=== PATIENT | female | born 1995 | race Caucasian/White ===

== ENCOUNTER 2025-03-19 16:17 | Inpatient (IN) | payer OTHER, SELFPAY ==
[2025-03-19] VITALS (15 sets, daily range): BP systolic 116–136; BP diastolic 73–98; PULSE 52–86; RESP 16–18; TEMP 36.4–36.6; O2SAT 95–100
--- NOTE | 2025-03-19 16:45 | RT.EKG_ITS ---
APPROVED REPORT Exam: Resting ECG Reason for Exam: R sided CP Patient Location: E HR:62 bpm ECG Measurements Heart Rate 62 AXIS DC 148 P 19 QRSd 83 QRS 20 QT 440 T 31 QTc 448 Conclusion Sinus rhythm, rate 62 No interval abnormalities No STEMI Q waves V1, V2 No priors available for comparison
--- NOTE | 2025-03-19 16:47 | W.ED.GENAD ---
Discharge Plan Disposition Patient Disposition: Admit to [facility] Condition: Stable Discharge Details Clinical Impression: Acute hepatic failure Primary Care Provider: Hector Guerra ED Provider: Nanveet Russell Home Meds and New Rx's Prescriptions: No Action pregabalin [Lyrica] 75 mg capsule 75 mg PO BID buspirone 10 mg tablet 10 mg PO BID lithium carbonate 300 mg tablet 300 mg PO BID quetiapine [Seroquel] 400 mg tablet 400 mg PO QHS HPI General Date/Time Provider Initiated Documentation: 03/19/25 16:26. HPI Narrative: 29 year-old biological female- uses they-them pronouns, transition to male, presents to ED today by POV/ambulating with a chief complaint of R sided abdominal pain with onset last night- becoming worse tonight. Quality described as generalized aching pain, no radiation to urinary frequency/pressure, vomiting, fever, shortness of breath, chest pain, endorses IBS & intermittent diarrhea, endorses nausea. Severity is described as moderate to severe. Palliating factors include nothing specific- patient sometimes takes #4 tabs of Tylenol for pain frequently. Provoking factors include deep breathing worsens pain. Events leading up to the incident/Associated Symptoms: Patient does take testosterone. Patient not anticoagulated. Related Data Home Medications ?Medication ?Instructions ?Recorded ?Confirmed buspirone 10 mg tablet 10 mg PO BID 03/19/25 03/19/25 lithium carbonate 300 mg tablet 300 mg PO BID 03/19/25 03/19/25 pregabalin 75 mg capsule (Lyrica) 75 mg PO BID 03/19/25 03/19/25 quetiapine 400 mg tablet (Seroquel) 400 mg PO QHS 03/19/25 03/19/25 Allergies Allergy/AdvReac Type Severity Reaction Status Date / Time lamotrigine (From Lamictal) Allergy Skin Rash Verified 03/19/25 16:25 Penicillins Allergy Skin Rash Verified 03/19/25 16:25 General Stated Complaint: Abd Prob YULISSA: 3 Review of Systems All systems reviewed & are unremarkable except as noted in HPI and below Exam Narrative Exam Narrative: GENERAL APPEARANCE: Well-nourished, non-toxic, awake and alert, atraumatic, no acute distress. SKIN: Warm, pale, dry, intact, without rashes/lesions/ulcerations. HEAD: Normocephalic, atraumatic, normal hair distribution for gender/age. EYES: Normal conjunctiva, no exudates on lids/lashes. ENT: Nares patent, no circumoral cyanosis, no facial swelling NECK: Supple, trachea midline, painless cervical ROM. LUNGS/CHEST: Lungs CTA bilaterally- no rhonchi/rales/wheezes diffusely, non-labored respirations, normal A/P diameter, symmetrical expansion, no chest wall deformity HEART (CV/PV): Regular rate and rhythm without murmur, no peripheral edema, no JVD. ABDOMEN: Soft, non-distended, no guarding, RUQ tenderness with + Musa's sign, no CVA tenderness to percussion bilaterally. MSK: Normal ROM, no swelling/deformity to bilateral UEs or LEs, moving all extremities without weakness, no cyanosis, spine midline without tenderness, normal curvature. NEURO: Mental Status AAOx4 - alert to person, place, time, events No facial droop, no forehead involvement. Motor: No focal weakness - strength 5/5 in bilateral UEs and LEs, proximal and distal, symmetric. Sensory: sensation intact to light touch globally. Gait normal: patient ambulated without ataxia into ED room. PSYCH: euthymic, cooperative, pleasant, appropriate speech Course Vital Signs Vital signs: Vital Signs Temperature 36.6 C 03/19/25 16:21 Pulse 61 03/19/25 16:21 Respiratory Rate 18 03/19/25 16:21 Blood Pressure 129/73 03/19/25 16:21 Pulse Oximetry 97 03/19/25 16:21 Temperature 36.6 C 03/19/25 16:39 Pulse 61 03/19/25 16:39 Respiratory Rate 18 03/19/25 16:39 Blood Pressure 129/73 03/19/25 16:39 Pulse Oximetry 97 03/19/25 16:39 Oxygen Delivery Method Room Air 03/19/25 16:39 Oxygen Flow Rate 0 03/19/25 16:39 Pain Level 10 03/19/25 16:39 Medical Decision Making This dictation utilizes [id number] dictation software and may contain unedited grammatical errors. 29 year-old biological female- uses they-them pronouns, transition to male, presents to ED today by POV/ambulating with a chief complaint of R sided abdominal pain with onset last night- becoming worse tonight. Quality described as generalized aching pain, no radiation to urinary frequency/pressure, vomiting, fever, shortness of breath, chest pain, endorses IBS & intermittent diarrhea, endorses nausea. Severity is described as moderate to severe. Palliating factors include nothing specific- patient sometimes takes #4 tabs of Tylenol for pain frequently. Provoking factors include deep breathing worsens pain. Events leading up to the incident/Associated Symptoms: Patient does take testosterone. Patients' medical history: Palpitations, mixed hyperlipidemia, borderline personality disorder, nonalcoholic fatty liver disease, fibromyalgia, IBS. Family and social history: Patient is currently housesitting in the area, denies any IV drug use, denies alcohol use. Pertinent exam findings / vital signs include right-sided abdominal tenderness with positive Musa sign, no CVA tenderness to percussion bilaterally, benign cardiopulmonary exam with mild tenderness in the lower right ribs without crepitus, nontoxic and afebrile. Differential / pathologies of concern include PE, ACS, biliary colic, renal colic, IBS or gastroenteritis, abdominal wall muscle strain. Diagnostic studies of: - CBC, CMP, PT/INR, D-dimer, lactate, troponin, lipase, UA, EKG. - EKG shows sinus rhythm at 62 bpm with P waves, narrow complex QRS, normal axis, somewhat flattened T waves but no acute T wave inversions, no ST elevations or reciprocal depressions - CBC shows no leukocytosis, no anemia, no left shift mildly low lymphocytes - PT/INR within normal limits - D-dimer is 1848 ordering PE study - Lactate 2.0 - CMP shows significant elevation of total bilirubin at 2.8, conjugated bilirubin is elevated at 1.3 (obstructive pattern), ALT elevated greater than AST 1732 greater than 1298-ordering Tylenol level and acute hepatitis panel - Troponin negative with reliable onset - Lipase within normal limits - UA shows no signs of abnormality - Tylenol level negative - CTA of the chest shows no PE, CT abdomen/pelvis shows trace pleural fluid but no other acute process Interventions of: -1 L IVF NS, 1 g IV Tylenol was ordered empirically on arrival will likely discontinue this until liver enzymes normalize - 4 mg IVP Zofran - Discussed with hospitalist Dr. Singh for admission at 2100 which was accepted, likely needs ultrasound right upper quadrant, trending of LFTs. ED Course/Assessment/Plan: 29-year-old male presents with right-sided abdominal pain onset last night worse today, he is housesitting in the area but usually goes to [facility], he notes that he said nonalcoholic fatty liver disease in the past, his LFTs are very elevated today of ALT 1732, AST 1298, Tylenol levels negative, is not acutely intoxicated, acute hepatitis panel sent out, patient likely needs ultrasound of the right upper quadrant tomorrow, he is admitted to the hospital with nonsurgical nonacute findings on CT and no other major signs of systemic infection. Disposition of Acute Hepatic Failure. Patient verbalized understanding of the plan and return to ED criteria and engaged in shared decision making. Medical Records Medical records reviewed: Yes I reviewed the patient's medical records. Imaging Data Radiologic Study: Attestation: I personally reviewed and interpreted this imaging study as follows: Imaging: CT Scan Radiologist's impression: Exam: CTA Chest With Contrast CTA Abdomen With Contrast Exam date and time: 03/19/2025 6:46 PM Age: 29 years old Clinical indication: Elevated d-dimer; Epigastric pain TECHNIQUE: Imaging protocol: Computed tomographic angiography of the chest with contrast. Exam focused on the arteries. Computed tomographic angiography of the abdomen with contrast. Exam focused on the arteries. 3D rendering (Not supervised by radiologist): MIP and/or 3D reconstructed images were created by the technologist. Radiation optimization: All CT scans at this facility use at least one of these dose optimization techniques: automated exposure control; mA and/or kV adjustment per patient size (includes targeted exams where dose is matched to clinical indication); or iterative reconstruction. Contrast material: OMNIPAQUE 350; Contrast volume: 75 ml; Contrast route: INTRAVENOUS (IV); COMPARISON: No relevant prior studies available. FINDINGS: VASCULATURE: Pulmonary arteries: No evidence of acute pulmonary embolism. Aorta: Normal caliber thoracic / abdominal aorta without dissection or aneurysm. Celiac and mesenteric arteries: No occlusion or significant stenosis. Renal arteries: No occlusion or significant stenosis. CHEST: Lungs: No acute alveolar or ground glass infiltrate. Pleural spaces: Trace bilateral pleural fluid. No pneumothorax. Heart: No right ventricular strain. No pericardial effusion. ABDOMEN AND PELVIS: Liver: Liver fatty infiltration. Gallbladder and biliary ducts: Unremarkable. No calcified stones. No ductal dilation. Pancreas: Unremarkable. No mass. No ductal dilation. Spleen: Unremarkable. No splenomegaly. Adrenal glands: Unremarkable. No mass. Kidneys: Unremarkable kidneys. No solid mass. No hydronephrosis. Stomach and bowel: Unremarkable. No obstruction. No mucosal thickening. Appendix: Normal appendix. Intraperitoneal space: No free air. No significant fluid collection. Reproductive: Prior hysterectomy. Lymph nodes: No enlarged lymph nodes. Bones/joints: Possible bone cyst present in the proximal right humerus. Soft tissues: Unremarkable. IMPRESSION: 1. No evidence of acute pulmonary embolism. 2. No acute pulmonary infiltrate. 3. Trace bilateral pleural fluid. 4. No acute intra-abdominal or pelvic process. Dictated and Authenticated by: Sharif Sandoval MD. Lab Data Lab results reviewed: Yes I reviewed the patient's lab results. Labs: Laboratory Tests Range/Units 03/19/25 03/19/25 03/19/25 17:22 17:34 19:02 WBC (4.4-10.8) 10^3/uL 4.28 L RBC (3.93-5.22) 10^6/uL 5.32 H Hgb (11.2-15.7) g/dL 15.4 Hct (36.0-46.0) % 44.9 MCV (80-95) fL 84 MCH (27.0-33.0) pg 28.9 MCHC (32.0-36.0) % 34.3 RDW (11.7-14.6) % 12.2 Plt Count (130-400) 10^3/uL 313 MPV (8.0-11.0) fL 10.5 Immature Gran % % 0.0 Neutrophils % % 71.3 Lymphocytes % % 22.2 Monocytes % % 5.1 Eosinophils % % 0.7 Basophils % % 0.7 Nucleated RBC % (0.0-0.3) % 0.0 Absolute Neutrophils (1.2-6.7) 10^3/uL 3.05 Absolute Lymphocytes (1.2-3.4) 10^3/uL 0.95 L Absolute Monocytes (0.1-0.8) 10^3/uL 0.22 Absolute Eosinophils (0.0-0.7) 10^3/uL 0.03 Absolute Basophils (0.0-0.2) 10^3/uL 0.03 PT (9.1-11.1) sec 10.4 INR (0.9-1.1) 1.0 D-Dimer (<500) ng/mlFEU 1848 H VBG Lactate (<or=2.0) mmol/L 2.0 Sodium (136-145) mmol/L 139 Potassium (3.5-5.1) mmol/L 4.2 Chloride (98-107) mmol/L 100 Carbon Dioxide (21.0-32.0) mmol/L 27.9 Anion Gap (3-11) mmol/L 11.1 H BUN (7-18) mg/dL 7 Creatinine (0.55-1.02) mg/dL 0.9 Est GFR (CKD-EPI 2020) (mL/min/1.73m2) 87.65 Glucose (74-106) mg/dL 150 H Calcium (8.5-10.1) mg/dL 9.5 Magnesium (1.8-2.4) mg/dL 1.9 Total Bilirubin (0.2-1.0) mg/dL 2.8 H Conjugated Bilirubin (0.0-0.2) mg/dL 1.3 H AST (15-37) U/L 1298 H ALT (14-59) U/L 1732 H Alkaline Phosphatase (46-116) U/L 162 H Troponin I (<or=51) ng/L < 4 Total Protein (6.4-8.2) g/dL 8.6 H Albumin (3.4-5.0) g/dL 4.3 Lipase (<78) U/L 38 Urine Color (Yellow) Urine Clarity (Clear) Urine pH (5-8) Ur Specific [place] (1.005-1.025) Urine Protein (Neg-Trace) mg/dL Urine Ketones (Negative) mg/dL Urine Blood (Negative) Urine Nitrite (Negative) Urine Bilirubin (Negative) Urine Urobilinogen (Up to 0.2) mg/dL Ur Leukocyte Esterase (Negative) Urine Glucose (Negative) mg/dL Acetaminophen (10-30) ug/mL Range/Units 03/19/25 03/19/25 19:38 20:35 WBC (4.4-10.8) 10^3/uL RBC (3.93-5.22) 10^6/uL Hgb (11.2-15.7) g/dL Hct (36.0-46.0) % MCV (80-95) fL MCH (27.0-33.0) pg MCHC (32.0-36.0) % RDW (11.7-14.6) % Plt Count (130-400) 10^3/uL MPV (8.0-11.0) fL Immature Gran % % Neutrophils % % Lymphocytes % % Monocytes % % Eosinophils % % Basophils % % Nucleated RBC % (0.0-0.3) % Absolute Neutrophils (1.2-6.7) 10^3/uL Absolute Lymphocytes (1.2-3.4) 10^3/uL Absolute Monocytes (0.1-0.8) 10^3/uL Absolute Eosinophils (0.0-0.7) 10^3/uL Absolute Basophils (0.0-0.2) 10^3/uL PT (9.1-11.1) sec INR (0.9-1.1) D-Dimer (<500) ng/mlFEU VBG Lactate (<or=2.0) mmol/L Sodium (136-145) mmol/L Potassium (3.5-5.1) mmol/L Chloride (98-107) mmol/L Carbon Dioxide (21.0-32.0) mmol/L Anion Gap (3-11) mmol/L BUN (7-18) mg/dL Creatinine (0.55-1.02) mg/dL Est GFR (CKD-EPI 2020) (mL/min/1.73m2) Glucose (74-106) mg/dL Calcium (8.5-10.1) mg/dL Magnesium (1.8-2.4) mg/dL Total Bilirubin (0.2-1.0) mg/dL Conjugated Bilirubin (0.0-0.2) mg/dL AST (15-37) U/L ALT (14-59) U/L Alkaline Phosphatase (46-116) U/L Troponin I (<or=51) ng/L Total Protein (6.4-8.2) g/dL Albumin (3.4-5.0) g/dL Lipase (<78) U/L Urine Color (Yellow) Yellow Urine Clarity (Clear) Clear Urine pH (5-8) 8.5 H Ur Specific [place] (1.005-1.025) 1.015 Urine Protein (Neg-Trace) mg/dL Negative Urine Ketones (Negative) mg/dL Negative Urine Blood (Negative) Negative Urine Nitrite (Negative) Negative Urine Bilirubin (Negative) Negative Urine Urobilinogen (Up to 0.2) mg/dL 0.2 Ur Leukocyte Esterase (Negative) Negative Urine Glucose (Negative) mg/dL Negative Acetaminophen (10-30) ug/mL 3 PFSH All Active Problems (Updated 03/19/25 @ 21:17 by SNEHA Galvin) Acute hepatic failure (Acute) Social History Smoking/Tobacco Use Status: Never Smoking risk assessment performed?: Yes Alcohol Intake: current Alcohol Intake frequency: a few times a month Drug use: Daily Substance use type: marijuana Housing: apartment Do you feel safe at home: Yes Do you feel safe in your relationship?: Yes
[2025-03-19 17:31] LABS: Abs Immature Grans 0.00 10^3/uL (0.0-0.06); HCT 44.9 % (36.0-46.0); HGB 15.4 g/dL (11.2-15.7); Immature Grans % 0.0 %; MCH 28.9 pg (27.0-33.0); MCHC 34.3 % (32.0-36.0); MCV 84 fL (80-95); MPV 10.5 fL (8.0-11.0); Platelet Count 313 10^3/uL (130-400); RBC 5.32 10^6/uL (3.93-5.22); RDW 12.2 % (11.7-14.6); RDW-SD 37.1 fL; WBC 4.28 10^3/uL (4.4-10.8)
[2025-03-19] MEDS: Ondansetron 4 MG/2 ML VIAL IVP (17:45)
[2025-03-19] MEDS: Normal Saline 1,000 ML 1000 ML IV (17:45)
[2025-03-19] MEDS: ACETAMINOPHEN 1,000 MG/100 ML BAG 400 MG IVPB (17:46)
[2025-03-19 18:01] LABS: Albumin 4.3 g/dL (3.4-5.0); Alkaline Phosphatase 162 U/L (46-116); Anion Gap 11.1 mmol/L (3-11); BUN 7 mg/dL (7-18); Bilirubin, Total 2.8 mg/dL (0.2-1.0); CO2 27.9 mmol/L (21.0-32.0); Calcium 9.5 mg/dL (8.5-10.1); Chloride 100 mmol/L (98-107); Estimated GFR 87.65 (mL/min/1.73m2); Glucose 150 mg/dL (74-106); Lipase 38 U/L (<78); Magnesium 1.9 mg/dL (1.8-2.4); Potassium 4.2 mmol/L (3.5-5.1); Sodium 139 mmol/L (136-145); Total Protein 8.6 g/dL (6.4-8.2)
[2025-03-19 18:03] LABS: AST 1298 U/L (15-37); Troponin I < 4 ng/L (<or=51)
[2025-03-19 18:04] LABS: D-Dimer 1848 ng/mlFEU (<500)
[2025-03-19 18:20] LABS: ALT 1732 U/L (14-59)
--- NOTE | 2025-03-19 18:30 | DI.CT_ITS ---
Exam(s) CT CHEST PE ABD PELVIS W EXAM: CT CHEST PE ABD PELVIS W CLINICAL HISTORY: chest pain; elev ddimer; epigastric pain. TECHNIQUE: Imaging Protocol: Axial CT angiography was performed with multi- slice acquisition and multi-planar and/or 3D reconstructions. Computer aided detection (CAD) was utilized. CONTRAST MATERIAL: Intravenous: Omnipaque 350contrast volume:75 mL COMPARISON: No exams were available for comparison FINDINGS: CHEST: Tracheobronchial tree: Patent where visualized. No evidence of bronchiectasis. Pulmonary parenchyma: No consolidation or dominant measurable mass. No architectural distortion. Pulmonary Arteries: No evidence of filling defect to suggest pulmonary emboli. Mediastinum and Jessie: No dominant adenopathy or fluid collection. The esophagus is unremarkable. Visualized thyroid gland: Unremarkable. Pleura: There are tiny bilateral pleural effusions. There is no pneumothorax. Heart: The heart is not dilated. No coronary artery calcifications are seen. No pericardial effusion. Aorta: Thoracic aorta non-dilated. No evidence of dissection. Bones: Within normal limits for the patient's age. Soft tissues: Unremarkable. ABDOMEN: Liver: There is diffuse decreased attenuation of the liver consistent with fatty infiltration. No measurable mass. Portal, Superior Mesenteric, and Splenic Veins: Unremarkable. Gallbladder and Biliary Tract: No radiodense calculus or dilation. Pancreas: Normal density, no abnormal calcifications or inflammatory process. Spleen: Normal. Adrenals: No masses seen. Kidneys: Normal size, contour and axis. No radiodense stones or obstructive uropathy. No masses seen. Abdominal Aorta: Abdominal portion non-dilated. Bowel: No obstruction or bowel wall thickening. Appendix is unremarkable. Peritoneal Cavity: No ascites, collection or mesenteric inflammatory response. No free air. Lymph Nodes: Within normal limits. Bones: Within normal limits for the patient's age. Soft Tissues: Unremarkable. PELVIS: Bladder: Symmetric distention, no gross wall thickening. Reproductive Organs: The uterus is absent. Lymph Nodes: Within normal limits. Bones: Within normal limits. IMPRESSION: 1. Fatty infiltration of the liver. 2. No acute abdominal or pelvic process. 3. There is no evidence of a pulmonary embolism, thoracic aortic dissection or aneurysm. 4. Tiny bilateral pleural effusions. 5. No focal consolidating infiltrates. 6. The preliminary [facility] report was reviewed. RADIATION DOSE DELIVERED: 566.59mGy.cm Total DLP DATA REPOSITORY: All CT scans at this facility are submitted to the National Radiology Data Registry (NRDR) Dose Index Registry (DIR) with the [employer] (A[employer]). RADIATION OPTIMIZATION: All CT scans at this facility use at least one of these dose optimization techniques: automated exposure control; mA and/or kV adjustment per patient size (includes targeted exams where dose is matched to clinical indication); or iterative reconstruction.
[2025-03-19] MEDS: Omnipaque 350 MG/ML 100 ML BTL IJ (18:54)
[2025-03-19] MEDS: Normal Saline Flush 10 ML SYR IVP (18:55)
[2025-03-19] MEDS: Normal Saline - Diluent 50 ML VIAL IJ (18:55)
[2025-03-19 19:26] LABS: INR 1.0 (0.9-1.1); Prothrombin Time 10.4 sec (9.1-11.1)
[2025-03-19 19:31] LABS: Bilirubin, Direct 1.3 mg/dL (0.0-0.2)
[2025-03-19 19:47] LABS: Glucose Negative (Negative)
--- NOTE | 2025-03-19 20:48 | DI.[facility]_ITS ---
PROCEDURE INFORMATION: Exam: CTA Chest With Contrast CTA Abdomen With Contrast Exam date and time: 03/19/2025 6:46 PM Age: 29 years old Clinical indication: Elevated d-dimer; Epigastric pain TECHNIQUE: Imaging protocol: Computed tomographic angiography of the chest with contrast. Exam focused on the arteries. Computed tomographic angiography of the abdomen with contrast. Exam focused on the arteries. 3D rendering (Not supervised by radiologist): MIP and/or 3D reconstructed images were created by the technologist. Radiation optimization: All CT scans at this facility use at least one of these dose optimization techniques: automated exposure control; mA and/or kV adjustment per patient size (includes targeted exams where dose is matched to clinical indication); or iterative reconstruction. Contrast material: OMNIPAQUE 350; Contrast volume: 75 ml; Contrast route: INTRAVENOUS (IV); COMPARISON: No relevant prior studies available. FINDINGS: VASCULATURE: Pulmonary arteries: No evidence of acute pulmonary embolism. Aorta: Normal caliber thoracic / abdominal aorta without dissection or aneurysm. Celiac and mesenteric arteries: No occlusion or significant stenosis. Renal arteries: No occlusion or significant stenosis. CHEST: Lungs: No acute alveolar or ground glass infiltrate. Pleural spaces: Trace bilateral pleural fluid. No pneumothorax. Heart: No right ventricular strain. No pericardial effusion. ABDOMEN AND PELVIS: Liver: Liver fatty infiltration. Gallbladder and biliary ducts: Unremarkable. No calcified stones. No ductal dilation. Pancreas: Unremarkable. No mass. No ductal dilation. Spleen: Unremarkable. No splenomegaly. Adrenal glands: Unremarkable. No mass. Kidneys: Unremarkable kidneys. No solid mass. No hydronephrosis. Stomach and bowel: Unremarkable. No obstruction. No mucosal thickening. Appendix: Normal appendix. Intraperitoneal space: No free air. No significant fluid collection. Reproductive: Prior hysterectomy. Lymph nodes: No enlarged lymph nodes. Bones/joints: Possible bone cyst present in the proximal right humerus. Soft tissues: Unremarkable. IMPRESSION: 1. No evidence of acute pulmonary embolism. 2. No acute pulmonary infiltrate. 3. Trace bilateral pleural fluid. 4. No acute intra-abdominal or pelvic process. Dictated and Authenticated by: Sharif Sandoval MD. Orderin Drew Toth MD
[2025-03-19 21:08] LABS: Acetaminophen 3 ug/mL (10-30)
--- NOTE | 2025-03-19 21:55 | HPE_ITS ---
Date of service: 03/19/25 Time of Service: 21:55 Assessment and Plan Assessment and plan (1) Acute hepatic failure: Status: Acute Assessment and plan: Exact etiology is unknown. Will recheck labs in the AM. Hepatitis panel has been sent to the ED. Will order MR CP as well as ultrasound to see if we can delineate pathology. Patient is currently having very little and no pain. (2) Elevated d-dimer: Status: Acute Assessment and plan: Once again exact etiology is unknown but her CT angiogram did not indicate a pulmonary emboli I will do a lower extremity ultrasound for completeness. (3) Hyperbilirubinemia: Status: Acute Assessment and plan: Patient has elevated total as well as direct bilirubin. Concern for obstructive picture so therefore we will follow-up images as mentioned above will be performed. History of Present Illness History of Present Illness Chief Complaint: right flank pain Narrative: This is a 29-year-old male who presents to the ED with a 1 day history of right flank pain radiating towards his belly. Patient denies significant anorexia but does have a history of IBS and states that he is having multiple liquid stools of late. Patient also states he has a history of fibromyalgia. Patient states that he has not had any changes in his medications since October. Patient states that in his visit to the physicians in the past he has been diagnosed with transaminitis but very mild. Patient denies any new foods denies any intravenous drug use denies any significant alcohol use states that he has never been diagnosed with HIV or hepatitis in the past. Patient denies any change in his stool color. Workup in the ED including radiographs as well as laboratory data are as follows: He does have an elevated AST at 1298 as well as an elevated ALT at 1732. He also has an elevated total bilirubin at 2.[address] was essentially benign. He did get a CT angiogram as he had an elevated D- dimer at 1848. Patient's Tylenol level was nondetectable. Patient does endorse allergies to Lamictal as well as penicillin. Patient is a full code. Patient denies any calf pain recent travel MPRESSION: 1. No evidence of acute pulmonary embolism. 2. No acute pulmonary infiltrate. 3. Trace bilateral pleural fluid. 4. No acute intra-abdominal or pelvic process. Review of Systems All systems reviewed & are unremarkable except as noted in HPI and below PFSH All Active Problems (Updated 10/20/25 @ 22:01 by Stephen Singh MD) Hyperbilirubinemia (Acute) Elevated d-dimer (Acute) Acute hepatic failure (Acute) Social History Smoking/Tobacco Use Status: Never Smoking risk assessment performed?: Yes Alcohol Intake: current Alcohol Intake frequency: a few times a month Drug use: Daily Substance use type: marijuana Housing: apartment Do you feel safe at home: Yes Do you feel safe in your relationship?: Yes Meds Allergies and Home Medications Allergies Allergy/AdvReac Type Severity Reaction Status Date / Time lamotrigine (From Lamictal) Allergy Skin Rash Verified 03/19/25 16:25 Penicillins Allergy Skin Rash Verified 03/19/25 16:25 Home Medications ?Medication ?Instructions ?Recorded ?Confirmed ?Type buspirone 10 mg tablet 10 mg PO BID 03/19/25 History lithium carbonate 300 mg tablet 300 mg PO BID 03/19/25 03/19/25 History pregabalin 75 mg capsule (Lyrica) 75 mg PO BID 5 03/19/25 History quetiapine 400 mg tablet (Seroquel) 400 mg PO QHS 03/0103/19/25 History Exam Narrative Exam Narrative: HEENT-normocephalic atraumatic mucous memories moist oropharynx is clear Neck-no lymphadenopathy no JVD no thyromegaly Cardiovascular-regular rate and rhythm no murmur rubs gallops she is lungs-clear to auscultation bilaterally with good air exchange Abdomen- mild tenderness to palpation in the right upper quadrant. Bowel sounds active x 4 Extremities-no sinus clubbing or edema bilaterally Neurologic-cranial nerves II through XII intact as tested normal Psych he is alert and orient x 3 no apparent distress Results Labs 03/19/25 17:22 03/19/25 17:22 Labs: Laboratory Results - last 24 hr 03/19/25 03/19/25 03/19/25 17:22 17:34 19:02 WBC 4.28 L RBC 5.32 H Hgb 15.4 Hct 44.9 MCV 84 MCH 28.9 MCHC 34.3 RDW 12.2 Plt Count 313 MPV 10.5 Immature Gran % 0.0 Neutrophils % 71.3 Lymphocytes % 22.2 Monocytes % 5.1 Eosinophils % 0.7 Basophils % 0.7 Nucleated RBC % 0.0 Absolute Neutrophils 3.05 Absolute Lymphocytes 0.95 L Absolute Monocytes 0.22 Absolute Eosinophils 0.03 Absolute Basophils 0.03 PT 10.4 INR 1.0 D-Dimer 1848 H VBG Lactate 2.0 Sodium 139 Potassium 4.2 Chloride 100 Carbon Dioxide 27.9 Anion Gap 11.1 H BUN 7 Creatinine 0.9 Est GFR (CKD-EPI 2020) 87.65 Glucose 150 H Calcium 9.5 Magnesium 1.9 Total Bilirubin 2.8 H Conjugated Bilirubin 1.3 H AST 1298 H ALT 1732 H Alkaline Phosphatase 162 H Troponin I < 4 Total Protein 8.6 H Albumin 4.3 Lipase 38 Urine Color Urine Clarity Urine pH Ur Specific [place] Urine Protein Urine Ketones Urine Blood Urine Nitrite Urine Bilirubin Urine Urobilinogen Ur Leukocyte Esterase Urine Glucose Acetaminophen 03/19/25 03/19/25 19:38 20:35 WBC RBC Hgb Hct MCV MCH MCHC RDW Plt Count MPV Immature Gran % Neutrophils % Lymphocytes % Monocytes % Eosinophils % Basophils % Nucleated RBC % Absolute Neutrophils Absolute Lymphocytes Absolute Monocytes Absolute Eosinophils Absolute Basophils PT INR D-Dimer VBG Lactate Sodium Potassium Chloride Carbon Dioxide Anion Gap BUN Creatinine Est GFR (CKD-EPI 2020) Glucose Calcium Magnesium Total Bilirubin Conjugated Bilirubin AST ALT Alkaline Phosphatase Troponin I Total Protein Albumin Lipase Urine Color Yellow Urine Clarity Clear Urine pH 8.5 H Ur Specific [place] 1.015 Urine Protein Negative Urine Ketones Negative Urine Blood Negative Urine Nitrite Negative Urine Bilirubin Negative Urine Urobilinogen 0.2 Ur Leukocyte Esterase Negative Urine Glucose Negative Acetaminophen 3 Last Vital Signs Temp 36.6 C 03/19/25 16:39 Pulse 64 03/19/25 17:38 Resp 18 03/19/25 17:38 BP 136/98 H 03/19/25 17:38 Pulse Ox 98 03/19/25 17:38 Time Spent Time spent with Patient: 40-54 minutes Time was spent: preparing to see the patient(eg.review tests), obtaining and/or reviewing separately otained hiistory, ordering medications,tests, procedures, referring, communicating with other health career development counselor, indepentently interpreting results, counseling the patient and care coordination
--- NOTE | 2025-03-19 22:54 | W.PC.ACHO ---
Registration Status: ADM IN Primary Language: Preferred Language: ED Information & Data Chief Complaint Abd Prob 03/19/25 16:48 Triage Note pt with c/o right side pain 03/19/25 16:21 along rib cage pt states pain onset last night becoming worse today Most Recent Vital Signs Temperature 36.4 C L 03/19/25 22:21 Temperature Source Temporal Artery Scan 03/19/25 22:21 Pulse 80 03/19/25 22:21 Pulse Rhythm Regular 03/19/25 22:21 Respiratory Rate 18 03/19/25 22:21 Respiratory Effort Normal 03/19/25 22:21 Respiratory Depth Normal 03/19/25 22:21 Respiratory Pattern Normal 03/19/25 22:21 Blood Pressure 127/94 H 03/19/25 22:21 Blood Pressure Mean 105 03/19/25 22:21 Pulse Oximetry 95 03/19/25 22:21 Oxygen Delivery Method Room Air 03/19/25 22:21 Oxygen Flow Rate 0 03/19/25 22:21 Pain Level 5 03/19/25 22:21 Allergies lamotrigine (From Lamictal) Allergy (Verified 03/19/25 16:25) Skin Rash Penicillins Allergy (Verified 03/19/25 16:25) Skin Rash Active Medications Generic Name Dose Route Start Last Admin Trade Name Freq PRN Reason Stop Dose Admin Iohexol 100 ml 03/19/25 18:45 03/19/25 18:54 Omnipaque 350 Mg/Ml 100 Ml Btl IJ 04/18/25 23:59 75 ml DIRECTED SELVIN Administration Sodium Chloride 50 ml 03/19/25 18:45 03/19/25 18:55 Normal Saline - Diluent 50 Ml Vial IJ 50 ml DIRECTED SELVIN Administration Sodium Chloride 0 ml 03/19/25 18:45 03/19/25 18:55 Normal Saline Flush 10 Ml Syr IVP 10 ml PRN PRN Administration IV IV Catheter Type [Left Saline Lock Antecubital] IV Catheter Gauge [Left 18 Antecubital] Diet Orders Category Date Time Status Regular/Normal [DIET] Nutrition 03/20/25 Breakfast Ordered Diagnostics 03/19/25 03/19/25 03/19/25 Range/Units 20:35 19:38 19:02 WBC (4.4-10.8) 10^3/uL RBC (3.93-5.22) 10^6/uL Hgb (11.2-15.7) g/dL Hct (36.0-46.0) % MCV (80-95) fL MCH (27.0-33.0) pg MCHC (32.0-36.0) % RDW (11.7-14.6) % Plt Count (130-400) 10^3/uL MPV (8.0-11.0) fL Immature Gran % % Neutrophils % % Lymphocytes % % Monocytes % % Eosinophils % % Basophils % % Nucleated RBC % (0.0-0.3) % Absolute Neutrophils (1.2-6.7) 10^3/uL Absolute Lymphocytes (1.2-3.4) 10^3/uL Absolute Monocytes (0.1-0.8) 10^3/uL Absolute Eosinophils (0.0-0.7) 10^3/uL Absolute Basophils (0.0-0.2) 10^3/uL PT 10.4 (9.1-11.1) sec INR 1.0 (0.9-1.1) D-Dimer (<500) ng/mlFEU VBG Lactate (<or=2.0) mmol/L Sodium (136-145) mmol/L Potassium (3.5-5.1) mmol/L Chloride (98-107) mmol/L Carbon Dioxide (21.0-32.0) mmol/L Anion Gap (3-11) mmol/L BUN (7-18) mg/dL Creatinine (0.55-1.02) mg/dL Est GFR (CKD-EPI 2020) (mL/min/1.73m2) Glucose (74-106) mg/dL Calcium (8.5-10.1) mg/dL Magnesium (1.8-2.4) mg/dL Total Bilirubin (0.2-1.0) mg/dL Conjugated Bilirubin 1.3 H (0.0-0.2) mg/dL AST (15-37) U/L ALT (14-59) U/L Alkaline Phosphatase (46-116) U/L Troponin I (<or=51) ng/L Total Protein (6.4-8.2) g/dL Albumin (3.4-5.0) g/dL Lipase (<78) U/L Urine Color Yellow (Yellow) Urine Clarity Clear (Clear) Urine pH 8.5 H (5-8) Ur Specific [place] 1.015 (1.005-1.025) Urine Protein Negative (Neg-Trace) mg/dL Urine Ketones Negative (Negative) mg/dL Urine Blood Negative (Negative) Urine Nitrite Negative (Negative) Urine Bilirubin Negative (Negative) Urine Urobilinogen 0.2 (Up to 0.2) mg/dL Ur Leukocyte Esterase Negative (Negative) Urine Glucose Negative (Negative) mg/dL Acetaminophen 3 (10-30) ug/mL Hepatitis A IgM Ab Pending Hep Bs Antigen Pending Hep B Core Total Ab Pending Hepatitis C Antibody Pending 03/19/25 03/19/25 Range/Units 17:34 17:22 WBC 4.28 L (4.4-10.8) 10^3/uL RBC 5.32 H (3.93-5.22) 10^6/uL Hgb 15.4 (11.2-15.7) g/dL Hct 44.9 (36.0-46.0) % MCV 84 (80-95) fL MCH 28.9 (27.0-33.0) pg MCHC 34.3 (32.0-36.0) % RDW 12.2 (11.7-14.6) % Plt Count 313 (130-400) 10^3/uL MPV 10.5 (8.0-11.0) fL Immature Gran % 0.0 % Neutrophils % 71.3 % Lymphocytes % 22.2 % Monocytes % 5.1 % Eosinophils % 0.7 % Basophils % 0.7 % Nucleated RBC % 0.0 (0.0-0.3) % Absolute Neutrophils 3.05 (1.2-6.7) 10^3/uL Absolute Lymphocytes 0.95 L (1.2-3.4) 10^3/uL Absolute Monocytes 0.22 (0.1-0.8) 10^3/uL Absolute Eosinophils 0.03 (0.0-0.7) 10^3/uL Absolute Basophils 0.03 (0.0-0.2) 10^3/uL PT (9.1-11.1) sec INR (0.9-1.1) D-Dimer 1848 H (<500) ng/mlFEU VBG Lactate 2.0 (<or=2.0) mmol/L Sodium 139 (136-145) mmol/L Potassium 4.2 (3.5-5.1) mmol/L Chloride 100 (98-107) mmol/L Carbon Dioxide 27.9 (21.0-32.0) mmol/L Anion Gap 11.1 H (3-11) mmol/L BUN 7 (7-18) mg/dL Creatinine 0.9 (0.55-1.02) mg/dL Est GFR (CKD-EPI 2020) 87.65 (mL/min/1.73m2) Glucose 150 H (74-106) mg/dL Calcium 9.5 (8.5-10.1) mg/dL Magnesium 1.9 (1.8-2.4) mg/dL Total Bilirubin 2.8 H (0.2-1.0) mg/dL Conjugated Bilirubin (0.0-0.2) mg/dL AST 1298 H (15-37) U/L ALT 1732 H (14-59) U/L Alkaline Phosphatase 162 H (46-116) U/L Troponin I < 4 (<or=51) ng/L Total Protein 8.6 H (6.4-8.2) g/dL Albumin 4.3 (3.4-5.0) g/dL Lipase 38 (<78) U/L Urine Color (Yellow) Urine Clarity (Clear) Urine pH (5-8) Ur Specific [place] (1.005-1.025) Urine Protein (Neg-Trace) mg/dL Urine Ketones (Negative) mg/dL Urine Blood (Negative) Urine Nitrite (Negative) Urine Bilirubin (Negative) Urine Urobilinogen (Up to 0.2) mg/dL Ur Leukocyte Esterase (Negative) Urine Glucose (Negative) mg/dL Acetaminophen (10-30) ug/mL Hepatitis A IgM Ab Hep Bs Antigen Hep B Core Total Ab Hepatitis C Antibody [id number] Documentation POC Urine Test Start: 03/19/25 18:51 Freq: .Urine Test Status: Complete Protocol: Activity Type Activity Date Activity User E-sign Co-sign Detail Recorded Client Recorded Date Recorded By Document 03/19/25 19:45 ER [id number] 03/19/25 20:07 ER Intake and Output - 24 Hour Total 03/19/25 16:17 thru 03/19/25 22:21 Intake Total 1100 Balance 1100 Weight 84 kg Intake: IV 1100 Other: # Voids 3 Falls Risk Assessment History of Falls No History 03/19/25 16:41 Contributing Factors No Factors 03/19/25 16:41 Ambulatory Aids Independent 03/19/25 16:41 Tubes/Lines None 03/19/25 16:41 Gait Evaluation No gait disturbance 03/19/25 16:41 Cognition No cognitive impairment 03/19/25 16:41 Fall Total Score 0 03/19/25 16:41 Level of Risk Standard/Low Risk 03/19/25 16:41 Problems Hyperbilirubinemia (Acute) Elevated d-dimer (Acute) Acute hepatic failure (Acute) v v v v v v v v v Sending and/or Receiving Nurses: Please use comment section below to note any information pertinent to the patient hand-off not included above. Information / Comments: no further Report received from:Elizabeth
[2025-03-19] MEDS: QUEtiapine 50 MG TAB 400 MG PO (23:02)
[2025-03-19] MEDS: Normal Saline 1,000 ML 125 ML IV (23:03)
--- NOTE | 2025-03-20 | DI.US_ITS ---
Exam(s) US EXTREMITY VENOUS BI EXAM: US EXTREMITY VENOUS BI CLINICAL HISTORY: elevated dimer. TECHNIQUE: Bilateral lower extremity venous ultrasound performed using grayscale, color-flow, and spectral Doppler analysis. COMPARISON: No exams were available for comparison FINDINGS: The right common femoral, femoral and popliteal veins demonstrate normal compressibility, augmentation, and color Doppler. The posterior tibial veins are patent. The saphenofemoral junction is unremarkable. There is no evidence of a Frank's cyst. The soft tissues are unremarkable. The left common femoral, femoral and popliteal veins demonstrate normal compressibility, augmentation, and color Doppler. The posterior tibial veins are patent. The saphenofemoral junction is unremarkable. There is no evidence of a Frank's cyst. The soft tissues are unremarkable. IMPRESSION: 1. No evidence of a right lower extremity DVT. 2. No evidence of a left lower extremity DVT. DATA REPOSITORY:
--- NOTE | 2025-03-20 | DI.US_ITS ---
Exam(s) US ABDOMEN EXAM: US ABDOMEN CLINICAL HISTORY: transaminitis TECHNIQUE: Ultrasound abdomen performed using standard protocol. COMPARISON: CT CT CHEST PE ABD PELVIS W from 03/19/2025 FINDINGS: ABDOMINAL AORTA AND IVC: Visualized portions normal caliber. PANCREAS: Normal where visualized. LIVER: There is diffuse increased echogenicity of the liver consistent with fatty infiltration. There is focal fatty sparing adjacent to the gallbladder fossa. Hepatopetal flow in the Portal Vein. No evidence of a hepatic mass. The liver measures 17.1cm long. GALLBLADDER:No evidence of cholelithiasis. No evidence of wall thickening. No pericholecystic fluid identified. BILIARY SYSTEM: Common bile duct measures < 7 mm. No intrahepatic biliary ductal dilation. WILLIAM'S SIGN: Negative. KIDNEYS: Kidneys are symmetric in size. No evidence of renal calculi. No evidence of hydronephrosis. No renal mass or cyst identified. SPLEEN: Not enlarged. ASCITES: None seen. IMPRESSION: Hepatic steatosis. DATA REPOSITORY:
--- NOTE | 2025-03-20 | DI.MRI_ITS ---
Exam(s) MR ABDOMEN WO EXAM: MR ABDOMEN WO CLINICAL HISTORY: transaminitis TECHNIQUE: Multiplanar multisequence MRI of the Abdomen was performed. COMPARISON: CT CT CHEST PE ABD PELVIS W from 03/19/2025 US US ABDOMEN from 03/20/2025 FINDINGS: Lung bases: There are very small bilateral pleural effusions. Liver: There is diffuse fatty infiltration of the liver. This is best appreciated on the in/opposed phase images. There is no evidence of a hepatic mass. Pancreas: Unremarkable. Gallbladder and Bile Ducts: Gallbladder is contracted. There is no evidence of cholelithiasis or biliary ductal dilatation. Adrenals: Unremarkable. Kidneys: No suspicious renal mass is seen. There is no hydronephrosis. Spleen: Unremarkable. Bowel: There is no evidence of bowel obstruction or bowel wall thickening. Aorta: There is no evidence of an abdominal aortic aneurysm. Soft Tissues: Unremarkable. Bone: Unremarkable. Lymph Nodes: Unremarkable. IMPRESSION: 1. Fatty infiltration of the liver. 2. Very small bilateral pleural effusions. 3. No evidence of cholelithiasis or biliary ductal dilatation. DATA REPOSITORY:
[2025-03-20 06:30] LABS: Abs Immature Grans 0.00 10^3/uL (0.0-0.06); HCT 42.4 % (36.0-46.0); HGB 14.6 g/dL (11.2-15.7); Immature Grans % 0.0 %; MCH 30.1 pg (27.0-33.0); MCHC 34.4 % (32.0-36.0); MCV 87 fL (80-95); MPV 10.7 fL (8.0-11.0); Platelet Count 298 10^3/uL (130-400); RBC 4.85 10^6/uL (3.93-5.22); RDW 12.2 % (11.7-14.6); RDW-SD 38.9 fL; WBC 4.98 10^3/uL (4.4-10.8)
[2025-03-20 06:50] LABS: ALT 987 U/L (14-59); AST 628 U/L (15-37); Albumin 3.4 g/dL (3.4-5.0); Alkaline Phosphatase 145 U/L (46-116); Anion Gap 6.9 mmol/L (3-11); BUN 7 mg/dL (7-18); Bilirubin, Total 2.6 mg/dL (0.2-1.0); CO2 26.1 mmol/L (21.0-32.0); Calcium 8.6 mg/dL (8.5-10.1); Chloride 107 mmol/L (98-107); Estimated GFR 100.96 (mL/min/1.73m2); Glucose 121 mg/dL (74-106); Potassium 3.8 mmol/L (3.5-5.1); Sodium 140 mmol/L (136-145); Total Protein 6.8 g/dL (6.4-8.2)
[2025-03-20] MEDS: Ondansetron 4 MG/2 ML VIAL IVP ×2 (07:33→13:21)
[2025-03-20] MEDS: HYDROmorphone 2 MG/ML SYR 1 MG IVP ×2 (07:33→18:43)
[2025-03-20] MEDS: Normal Saline 1,000 ML 125 ML IV ×2 (07:34→16:38)
[2025-03-20] MEDS: Normal Saline Flush 10 ML SYR IVP (07:34)
[2025-03-20 07:36] VITALS: BP 142/93; PULSE 61; RESP 17; TEMP 36.5; O2SAT 96
[2025-03-20] MEDS: busPIRone 5 MG TAB 10 MG PO ×2 (08:08→19:39)
[2025-03-20] MEDS: Lithium Carbonate 300 MG CAP PO (08:09)
[2025-03-20] MEDS: Pregabalin 25 MG CAP 75 MG PO ×2 (08:09→19:41)
--- NOTE | 2025-03-20 09:01 | PGE_ITS ---
Date of Service Date of service: 03/20/25 Time of Service: 09:01 Assessment and Plan Assessment and plan (1) Acute hepatic failure: Start date: 03/20/25 Start time: 11:00 Status: Acute Assessment and plan: Previous history with similar presentation and admitted at [facility] [place] this summer - attempting to get records- only mentioned findings of low level of testosterone w/o additional supplementation as per patient's report Exact etiology is unknown Liver enzymes and bilirubin -trending down near 50% ongoing IVF and PRN zofran for emesis Hepatitis panel pending NPO pending imaging this AM then resume diet MR CP pending Ultrasound pending Ongoing pain management with PRN hydromorphone- with Hx of IBS - will give bowel management medicines INR 1.0 on admission, Salicylate and GGT, ethyl, CPK, UDS pending CMP in AM (2) Elevated d-dimer: Start date: 03/20/25 Start time: 10:59 Status: Acute Assessment and plan: Trending down CMP in AM CT angiogram neagtive for PE Lower extremity ultrasound pending (3) Hyperbilirubinemia: Start date: 03/20/25 Start time: 10:59 Status: Acute Assessment and plan: trending down Imaging pending Labs in AM (4) Bipolar 1 disorder: Status: Acute Assessment and plan: On home dose lithium (5) Depression: Status: Chronic Assessment and plan: On home dose Buspar (6) Fibromyalgia: Status: Acute Assessment and plan: On home dose pregabalin (7) Insomnia: Status: Acute Assessment and plan: Was on home dose seroquel 400 mg PO Q HS Child -Jacobs score class A (8) Hormone replacement therapy (HRT): Start date: 03/20/25 Start time: 11:19 Status: Acute Assessment and plan: On Testoterone weekly dose du on Wednesday (9) GERD (gastroesophageal reflux disease): Status: Chronic Assessment and plan: Reports a history of GERD on omeprazole at home , now with heartburn and vomiting w/o hematemesis Protonix IV daily (10) On deep vein thrombosis (DVT) prophylaxis: Status: Acute Assessment and plan: On LMWH Discussed with Dr. Dailey Subjective Subjective Patient reports: no new complaints, still having pain, tolerating liquids well (NPO for Dx testing ), tolerating a regular diet (NPO for Dx testing ), voiding w/o difficulty, flatus, no bowel movement, diarrhea, nausea, vomiting and other (IBS -liquid stool X1 03/19); denies blood in stool, shortness of breath or fever Exam Narrative Exam Narrative: Rj Hurst is a 29 yo patient with Pronouns they them and a PMX of total hysterectomy, double mastectomy, testosterone replacement therapy weekly due on Wednesday, fibromyalgia on THC- head is normocephalic , non-icteric non-injected sclera , neurologically intact, alert and oriented X 4, unlabored breathing clear lungs, S1, S2 regular, no murmur, abdomen is round, non-distended, soft with generalized diffused tenderness > to RUQ, no guarging , negative ramirez's, CVA tenderness neagtive, no edema to extremities, RAAS 0, congrunet mmodf and affect Objective Last Vital Signs Temp 36.5 C 03/20/25 07:36 Pulse 61 03/20/25 07:36 Resp 17 03/20/25 07:36 BP 142/93 H 03/20/25 07:36 Pulse Ox 96 03/20/25 07:36 Laboratory Results - last 24 hr 03/19/25 03/19/25 03/19/25 17:22 17:34 19:02 WBC 4.28 L RBC 5.32 H Hgb 15.4 Hct 44.9 MCV 84 MCH 28.9 MCHC 34.3 RDW 12.2 Plt Count 313 MPV 10.5 Immature Gran % 0.0 Neutrophils % 71.3 Lymphocytes % 22.2 Monocytes % 5.1 Eosinophils % 0.7 Basophils % 0.7 Nucleated RBC % 0.0 Absolute Neutrophils 3.05 Absolute Lymphocytes 0.95 L Absolute Monocytes 0.22 Absolute Eosinophils 0.03 Absolute Basophils 0.03 PT 10.4 INR 1.0 D-Dimer 1848 H VBG Lactate 2.0 Sodium 139 Potassium 4.2 Chloride 100 Carbon Dioxide 27.9 Anion Gap 11.1 H BUN 7 Creatinine 0.9 Est GFR (CKD-EPI 2020) 87.65 Glucose 150 H Calcium 9.5 Magnesium 1.9 Total Bilirubin 2.8 H Conjugated Bilirubin 1.3 H AST 1298 H ALT 1732 H Alkaline Phosphatase 162 H Troponin I < 4 Total Protein 8.6 H Albumin 4.3 Lipase 38 Urine Color Urine Clarity Urine pH Ur Specific [place] Urine Protein Urine Ketones Urine Blood Urine Nitrite Urine Bilirubin Urine Urobilinogen Ur Leukocyte Esterase Urine Glucose Acetaminophen 03/19/25 03/19/25 03/20/25 19:38 20:35 05:50 WBC 4.98 RBC 4.85 Hgb 14.6 Hct 42.4 MCV 87 MCH 30.1 MCHC 34.4 RDW 12.2 Plt Count 298 MPV 10.7 Immature Gran % 0.0 Neutrophils % 57.3 Lymphocytes % 31.9 Monocytes % 7.8 Eosinophils % 2.4 Basophils % 0.6 Nucleated RBC % 0.0 Absolute Neutrophils 2.85 Absolute Lymphocytes 1.59 Absolute Monocytes 0.39 Absolute Eosinophils 0.12 Absolute Basophils 0.03 PT INR D-Dimer VBG Lactate Sodium 140 Potassium 3.8 Chloride 107 Carbon Dioxide 26.1 Anion Gap 6.9 BUN 7 Creatinine 0.8 Est GFR (CKD-EPI 2020) 100.96 Glucose 121 H Calcium 8.6 Magnesium Total Bilirubin 2.6 H Conjugated Bilirubin AST 628 H ALT 987 H Alkaline Phosphatase 145 H Troponin I Total Protein 6.8 Albumin 3.4 Lipase Urine Color Yellow Urine Clarity Clear Urine pH 8.5 H Ur Specific [place] 1.015 Urine Protein Negative Urine Ketones Negative Urine Blood Negative Urine Nitrite Negative Urine Bilirubin Negative Urine Urobilinogen 0.2 Ur Leukocyte Esterase Negative Urine Glucose Negative Acetaminophen 3 Time Spent with Patient Time Spent with Patient: >50 minutes Time was spent: preparing to see the patient(eg.review tests), obtaining and/or reviewing separately otained hiistory, ordering medications,tests, procedures, referring, communicating with other health career coordinator, indepentently interpreting results, counseling the patient, care coordination and other
--- NOTE | 2025-03-20 10:04 | PDOC.CMIN ---
Date of service: 03/20/25 Time of Service: 10:04 Care Management Initial Assmt Initial Assessment Reason for Hospitalization: Hepatic failure Functional Status/Living Situation Patient Presentation: Rj was sitting up in bed when CM met with them. They were very pleasant in interaction and easily engaged with CM. Rj was admitted with abdominal pain and nausea and vomiting. Their Bilirubim and LFTs were markedly elevated and testing for viral hepatitis is underway. Rj shared that they have been told they have transaminitis in the past and that it may be due to some of their medications. 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 They are independnet in the community and don't receive any community services. 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) Instrumental Activities of Daily Living (ADLs): Independent Medications Medication Management: No Issues/Barriers identified Advance Directives Advance Directives: Do you have an Advance Directive: N 03/20/25, 03:49 AD On File at [facility]: N 03/19/25, 17:18 Date Asked 03/19/25 03/19/25, 17:18 AD Date Reviewed COLST On File at [facility] COLST Date Scanned Code Status Resuscitation Status Full Code Portal Pt does not currently have a portal and education provided: Yes Insurance Coverage/Financial Issues Insurance: [facility] Care Team Visit Care Team Role Provider Type Carole Cobian APRN MD [facility] STAFF PHYSICIAN Hector Guerra MD Primary Care Provider NON-[facility] STAFF PHYSICIAN SNEHA Galvin Emergency Provider [employer] Stephen Singh MD Admit Provider [facility] STAFF PHYSICIAN Attending Provider Discharge Potential Discharge Needs: PCP F/U Appt Anticipated Barriers to Discharge: None Identified Patient/Family Education Needs: Review discharge instructions, discuss Ask Me Three Transportation: Private vehicle Plan: Anticipate Rj will be discharged home with no new services when medically stable. They will follow up with their PCP and plan of care and transport with a friend. CM will follow and continue to assess for sdischarge needs. Social Determinants of Health Screening Social Determinants of health last assessed in clinic: 03/19/25 Will the Patient Participate in the Screening?: Declined to provide Do you worry about having a steady place to live?: no Problems where you live: no known problems In the past 12 months, have you had to go without electric, gas, oil or water in your home?: no Has lack of transportation kept you from medical appointments or from doing things needed for daily living?: no Has anyone in your life made you feel unsafe or unsupported?: no How hard is it for you to pay for the very basics like food, housing, medical care, and heating? Would you say it is:: Not hard at all How often do you feel lonely or isolated from those around you?: Never Do you speak a language other than [place] at home?: No Does the patient want assistance with any of the above?: No PFSH All Active Problems (Updated 03/20/25 @ 11:22 by Carole Cobian APRN) GERD (gastroesophageal reflux disease) (Chronic) Hormone replacement therapy (HRT) (Acute) On deep vein thrombosis (DVT) prophylaxis (Acute) Insomnia (Acute) Fibromyalgia (Acute) Depression (Chronic) Bipolar 1 disorder (Acute) Hyperbilirubinemia (Acute) Elevated d-dimer (Acute) Acute hepatic failure (Acute) Social History Smoking/Tobacco Use Status: Never Smoking risk assessment performed?: Yes Alcohol Intake: current Alcohol Intake frequency: a few times a month Drug use: Daily Substance use type: marijuana Housing: house Do you feel safe at home: Yes Do you feel safe in your relationship?: Yes
[2025-03-20 10:36] LABS: Cannabinoids THC Positive (Negative); METHADONE URINE SCREEN Negative (Negative)
[2025-03-20] MEDS: Pantoprazole 40 MG VIAL IVP (10:54)
--- NOTE | 2025-03-20 12:14 | PHA.REVIEW2 ---
Pharmacy Admission Review Admission Clinical Review Admission Pharmacy Review: Hormone replacement therapy (HRT) (Acute) On deep vein thrombosis (DVT) prophylaxis (Acute) Insomnia (Acute) Fibromyalgia (Acute) Bipolar 1 disorder (Acute) Hyperbilirubinemia (Acute) Elevated d-dimer (Acute) Acute hepatic failure (Acute) lamotrigine (From Lamictal) Allergy (Verified 03/19/25 16:25) Skin Rash Penicillins Allergy (Verified 03/19/25 16:25) Skin Rash Resuscitation Status Full Code Height 5 ft 4 in Weight 84 kg Comments Comments/Follow Ups: Discuss IV to PO pantoprazole and ondansetron with provider tomorrow if patient not discharged and follow up on atorvastatin and quetiapine (see home med section) Pharmacy Admission Review Renal Dosing Renal Dosing: BUN 7 mg/dL (7-18) 03/20/25 05:50 Creatinine 0.8 mg/dL (0.55-1.02) 03/20/25 05:50 Medications needing adjustments: Reviewed (CrCl 106.76 mL/min) List of meds needing interventions: Current medications are okay Anticoagulation Anticoagulation: Hgb 14.6 g/dL (11.2-15.7) 03/20/25 05:50 Hct 42.4 % (36.0-46.0) 03/20/25 05:50 Plt Count 298 10^3/uL (130-400) 03/20/25 05:50 INR 1.0 (0.9-1.1) 03/19/25 19:02 Creatinine 0.8 mg/dL (0.55-1.02) 03/20/25 05:50 DVT Prophylaxis: Reviewed Medications: Enoxaparin (40mg aily) Opiate Usage Evaluate Pain Scale/Pains Meds: Reviewed (hydromorphone 1mg IVP q4h PRN - 1mg / 24hrs) Scheduled Bowel Reg ordered if on Opiates?: Yes (BID docusate) Relevant Labs Relevant Labs: Sodium 140 mmol/L (136-145) 03/20/25 05:50 Potassium 3.8 mmol/L (3.5-5.1) 03/20/25 05:50 Chloride 107 mmol/L (98-107) 03/20/25 05:50 Magnesium 1.9 mg/dL (1.8-2.4) 03/19/25 17:22 Electrolytes, C-Reactive P, ESR: Reviewed (AST/ALT decreased from 1298/1732 to 628/987 , total bilirubin decreased from 2.8 to 2.6) Cardiac Review Cardiac Review: Troponin I < 4 ng/L (<or=51) 03/19/25 17:22 BP, HR, EF%: Reviewed (BP 142/93, HR WNL) QTc Review QTc: Reviewed (448 from 03/19/25) IV to PO Switch IV Medications: Reviewed (hydromorphone, ondansetron and pantoprazole) Home Meds Home Med List reviewed: Intervened Relevent Home Meds Not ordered & why?: Recently filled atorvastatin 40mg daily and quetiapine 100mg HS - asked nurse to confirm with patient. Per patient they took take atorvastatin and they take the 100mg quetiapine in addition to the 400mg HS already on home med list. Added both to home med list and informed provider. Per external fill history patient takes lithium ER 300mg tablets twice daily, was originally on home med list as IR tablets. Updated home med list and changed order - provider aware. Current Meds Current Medication Order Review: Reviewed Comments Comments/Follow Ups: Discuss IV to PO pantoprazole and ondansetron with provider tomorrow if patient not discharged and follow up on atorvastatin and quetiapine (see home med section)
[2025-03-20 12:15] LABS: Creatine Kinase 115 U/L (26-192); GGT 613 U/L (5-55)
[2025-03-20] MEDS: Ketorolac 15 MG/ML VIAL IVP (15:00)
--- NOTE | 2025-03-20 15:20 | CHAPLAIN ---
Rj was sitting up in bed when I visited. They were pleasant and engaged in conversation. Most of their relatives at a distance they said, so they're in touch only by phone. I explained my role and offered support.
[2025-03-20 19:25] VITALS: BP 111/70; PULSE 71; RESP 16; TEMP 36.2; O2SAT 94
[2025-03-20] MEDS: QUEtiapine 100 MG TAB 500 MG PO (19:40)
[2025-03-21] MEDS: Normal Saline 1,000 ML 125 ML IV (00:21)
[2025-03-21] MEDS: Ondansetron 4 MG/2 ML VIAL IVP (05:25)
[2025-03-21] MEDS: HYDROmorphone 2 MG/ML SYR 1 MG IVP (05:26)
[2025-03-21 06:46] LABS: Abs Immature Grans 0.01 10^3/uL (0.0-0.06); HCT 39.2 % (36.0-46.0); HGB 13.4 g/dL (11.2-15.7); Immature Grans % 0.2 %; MCH 29.6 pg (27.0-33.0); MCHC 34.2 % (32.0-36.0); MCV 87 fL (80-95); MPV 10.6 fL (8.0-11.0); Platelet Count 261 10^3/uL (130-400); RBC 4.52 10^6/uL (3.93-5.22); RDW 12.2 % (11.7-14.6); RDW-SD 38.8 fL; WBC 5.14 10^3/uL (4.4-10.8)
[2025-03-21 07:06] LABS: ALT 695 U/L (14-59); AST 246 U/L (15-37); Albumin 3.4 g/dL (3.4-5.0); Alkaline Phosphatase 142 U/L (46-116); Anion Gap 8.3 mmol/L (3-11); BUN 5 mg/dL (7-18); Bilirubin, Total 1.5 mg/dL (0.2-1.0); CO2 27.7 mmol/L (21.0-32.0); Calcium 8.5 mg/dL (8.5-10.1); Chloride 105 mmol/L (98-107); Estimated GFR 100.96 (mL/min/1.73m2); Glucose 106 mg/dL (74-106); Potassium 3.6 mmol/L (3.5-5.1); Sodium 141 mmol/L (136-145); Total Protein 6.8 g/dL (6.4-8.2)
--- NOTE | 2025-03-21 08:14 | PDOC.CMPRO ---
Date of service: 03/21/25 Time of Service: 08:15 Care Management Progress Note Discharge Potential Discharge Needs: PCP F/U Appt Anticipated Barriers to Discharge: None Identified Patient/Family Education Needs: Review discharge instructions, discuss Ask Me Three Transportation: Private vehicle Plan: Anticipate Rj will be discharged home with no new services when medically stable. They will follow up with their PCP and plan of care and transport with a friend. CM will follow and continue to assess for discharge needs. Social Determinants of Health Screening Social Determinants of health last assessed in clinic: 03/19/25 Will the Patient Participate in the Screening?: Declined to provide Do you worry about having a steady place to live?: no Problems where you live: no known problems In the past 12 months, have you had to go without electric, gas, oil or water in your home?: no Has lack of transportation kept you from medical appointments or from doing things needed for daily living?: no Has anyone in your life made you feel unsafe or unsupported?: no How hard is it for you to pay for the very basics like food, housing, medical care, and heating? Would you say it is:: Not hard at all How often do you feel lonely or isolated from those around you?: Never Do you speak a language other than [place]inyar[place] at home?: No Does the patient want assistance with any of the above?: No
[2025-03-21 08:42] VITALS: BP 111/75; PULSE 95; RESP 16; TEMP 36.4; O2SAT 92
[2025-03-21] MEDS: Pantoprazole 40 MG VIAL IVP (08:44)
[2025-03-21] MEDS: Pregabalin 25 MG CAP 75 MG PO (08:45)
[2025-03-21] MEDS: Docusate Sodium 100 MG CAP PO (08:45)
[2025-03-21] MEDS: busPIRone 5 MG TAB 10 MG PO ×2 (08:46→13:38)
[2025-03-21] MEDS: Rosuvastatin 5 MG TAB PO (08:46)
[2025-03-21] MEDS: Enoxaparin 40 MG/0.4 ML SYR SC (08:47)
[2025-03-21 10:04] LABS: Lab Add On Test DONE
[2025-03-21] MEDS: Prochlorperazine 10 MG/2 ML VIAL 5 MG IVP (10:17)
[2025-03-21 10:19] LABS: Hepatitis A Antibody IgM Negative (Negative); Hepatitis C Ab w Rflx HCV PCR Negative (Negative)
[2025-03-21 10:25] LABS: Magnesium 2.0 mg/dL (1.8-2.4)
--- NOTE | 2025-03-21 11:57 | W.PM.DS.N ---
Date of service: 03/21/25 Time of Service: 11:57 DS: Diagnosis Discharge Diagnosis (1) Acute hepatic failure: Status: Acute (2) Elevated d-dimer: Status: Acute (3) Hyperbilirubinemia: Status: Acute (4) Bipolar 1 disorder: Status: Acute (5) Depression: Status: Chronic (6) Fibromyalgia: Status: Acute (7) Insomnia: Status: Acute (8) Hormone replacement therapy (HRT): Status: Acute (9) GERD (gastroesophageal reflux disease): Status: Chronic (10) On deep vein thrombosis (DVT) prophylaxis: Status: Acute Discharge Plan Disposition Patient Disposition: Home Condition: Improving Discharge Details Reason For Visit: Transaminitis Admit Date/Time: 03/19/25 21:50 Admit Provider: Stephen Singh Attending Provider: Stephen Singh Primary Care Provider: Hector Guerra Hospital Course Hospital Course: Rj Corona is a 29 year-old biological female- uses they-them pronouns, transition to male, presented to ED on 03/19/25 with chief complaint of right sided abdominal pain intremittently ongoing for 2 weeks with new onset last night and worsening with nausea.Workup in the ED found elevated liver enzymes, elevated total and conjugated bilirubin, D-dimer 1848. CTA of the chest abdomen and pelvis was only positive for fatty liver infiltration and trivial bilateral pleural effusions. Acetaminophen and Salicylate level were unremarkable; no leukocytosis or acute kidney injury. The patient was admitted to the medical surgical floor by the hospitalist team for further evaluation and monitoring. Past medical history includes: IBS & intermittent diarrhea, total hysterectomy and bilateral mastectomy, testosterone therapy, borderline personality disorder, depression, SI , fatty liver disease, transaminitis , hyperlipidemia The patient continue to receive IV hydration, nausea and subsequent vomiting treated with antiemetic drugs. Imaging studies are negative for DVT. Abdominal imaging studies showed no evidence of cholelithiasis, wall thickening or pericholecystic fluid; no common bile duct or intrahepatic bile duct dilation but again showed fatty liver infiltration w/o abscess or mass. The gallblader appeared contracted. Liver enzymes and bilirubin levels are trending down, hepatitis panel is negative. The patient is hemodynamically stable tolerating enteral intake and pain has greatly improved. The patient will be discharged home with recommendation for follow-up with PCP. Recommendation emitted for referral to gastroenterology/ hepatology. Some home medicines modified during your stay due to liver function. Now it is adequate to resume previous medicine regimen as per outpatient provider prescriptions. Discussed with Dr. Dailey Recommendations for Follow Up Recommended tests to be ordered by follow up provider: referral to gastroenterology/ hepatology recommended Home Meds and New Rx's Prescriptions: New prochlorperazine maleate [Compazine] 5 mg tablet 5 mg PO TID PRNQty: 10 0RF ibuprofen 600 mg tablet 600 mg PO TID PRNQty: 10 0RF pantoprazole [Protonix] 40 mg tablet,delayed release (DR/EC) 40 mg PO DAILY Qty: 7 0RF Continued pregabalin [Lyrica] 75 mg capsule 75 mg PO BID quetiapine [Seroquel] 400 mg tablet 400 mg PO QHS lithium carbonate 300 mg tablet extended release 300 mg PO BID Patient Comments: TAKE 1 TABLET BY MOUTH EVERY 12 HOURS atorvastatin 40 mg tablet 40 mg PO DAILY Patient Comments: TAKE 1 TABLET BY MOUTH ONCE DAILY quetiapine 100 mg tablet 100 mg PO HS Patient Comments: TAKE 1 TABLET BY MOUTH AT BEDTIME Rx Instructions: with 400mg tablet for total dose of 500mg Changed buspirone 10 mg tablet 10 mg PO TID Qty: 0 0RF Discharge Instructions Stand Alone Forms: Nursing Discharge Form Referrals: Hector Guerra MD [Primary Care Provider, Medicine] Referral Note: Follow-up with 7 days of discharge Activity:: Activity as Tolerated Equipment/Supplies:: No Equipment Needed Diet:: low fat Discharge Orders Discharge Orders: Discharge Order (Routine); Ordered 03/21/25 Ordered By: Carole Cobian DS: Summary Time Spent with Patient providing and/or coordinating discharge services: Greater than 30 minutes Status at Discharge Functional status at discharge: independent ambulation Overall status at discharge: patient is progressing back to baseline Mental Status: mental status grossly normal Speech and Movement: speech and movement normal Mood: congruent mood Affect: normal affect Exam Narrative Exam Narrative: Alert and oriented X4 ,, non-icteric non-injected sclera , neurologically intact, clear lungs, S1, S2 regular, no murmur, abdomen is round, non-distended, soft non-tender, no guarding , moves all 4 extremities, RAAS 0, congruent mood and affect Psych Mental Status: mental status grossly normal Speech and Movement: speech and movement normal Mood: congruent mood Affect: normal affect DS: Data Vitals/I&O Vitals and I&O: Vital Signs Temperature 36.4 C L 03/21/25 08:42 Temperature Source Temporal Artery Scan 03/21/25 08:42 Pulse 95 H 03/21/25 08:42 Pulse Rhythm Regular 03/19/25 22:21 Respiratory Rate 16 03/21/25 08:42 Respiratory Effort Normal 03/19/25 22:21 Respiratory Depth Normal 03/19/25 22:21 Respiratory Pattern Normal 03/19/25 22:21 Blood Pressure 111/75 03/21/25 08:42 Blood Pressure Mean 87 03/21/25 08:42 Pulse Oximetry 92 03/21/25 08:42 Oxygen Delivery Method Room Air 03/21/25 08:42 Oxygen Flow Rate 0 03/21/25 08:42 Pain Level 5 03/21/25 10:17 Intake & Output 03/20/25 03/20/25 03/21/25 11:59 23:59 11:59 Intake Total 999 1214.583 / 1214.583 Balance 999 1214.583 / 1214.583 Weight 84.2 kg Intake: IV 999 964.583 / 964.583 Oral 250 / 250 Other: Urine Color Pale Yellow Urine Appearance Clear Urine Odor None Comment voids in bathroom independently per pt Data Completed and Pending Labs on day of discharge: Labs from last 24 hours 03/21/25 03/20/25 03/19/25 06:30 11:40 19:02 WBC 5.14 RBC 4.52 Hgb 13.4 Hct 39.2 MCV 87 MCH 29.6 MCHC 34.2 RDW 12.2 Plt Count 261 MPV 10.6 Immature Gran % 0.2 Neutrophils % 52.3 Lymphocytes % 36.0 Monocytes % 6.8 Eosinophils % 4.1 Basophils % 0.6 Nucleated RBC % 0.0 Absolute Neutrophils 2.69 Absolute Lymphocytes 1.85 Absolute Monocytes 0.35 Absolute Eosinophils 0.21 Absolute Basophils 0.03 Sodium 141 Potassium 3.6 Chloride 105 Carbon Dioxide 27.7 Anion Gap 8.3 BUN 5 L Creatinine 0.8 Est GFR (CKD-EPI 2020) 100.96 Glucose 106 Calcium 8.5 Magnesium 2.0 Total Bilirubin 1.5 H GGT 613 H AST 246 H ALT 695 H Alkaline Phosphatase 142 H Creatine Kinase 115 Total Protein 6.8 Albumin 3.4 Ethyl Alcohol < 3.0 Hepatitis A IgM Ab Negative Hep Bs Antigen Negative Hep B Core Total Ab Negative Hepatitis C Antibody Negative Add-On Test Request DONE PFS All Active Problems (Updated 03/20/25 @ 11:22 by Carole Cobian APRN) GERD (gastroesophageal reflux disease) (Chronic) Hormone replacement therapy (HRT) (Acute) On deep vein thrombosis (DVT) prophylaxis (Acute) Insomnia (Acute) Fibromyalgia (Acute) Depression (Chronic) Bipolar 1 disorder (Acute) Hyperbilirubinemia (Acute) Elevated d-dimer (Acute) Acute hepatic failure (Acute) Social History Smoking/Tobacco Use Status: Never Smoking risk assessment performed?: Yes Alcohol Intake: current Alcohol Intake frequency: a few times a month Drug use: Daily Substance use type: marijuana Housing: house Do you feel safe at home: Yes Do you feel safe in your relationship?: Yes Time Spent with Patient Time Spent with Patient: >85 minutes Time was spent: preparing to see the patient(eg.review tests), obtaining and/or reviewing separately otained hiistory, ordering medications,tests, procedures, referring, communicating with other health youth care specialist, indepentently interpreting results, counseling the patient, care coordination and other
[2025-03-21 12:46] LABS: Fentanyl Scr w/Rfx Confirm Negative ng/mL (<1)
--- NOTE | 2025-03-21 16:17 | PDOC.CMDIS ---
Date of service: 03/21/25 Time of Service: 16:17 LACE Index Scoring Tool Questions: Length of Stay (in days): 2 Was the patient admitted via the E.D.?: Yes Comorbidities: Liver or Renal Disease E.D. Visits: 1 Answers: Total Score: 11 Risk of Readmission: High Risk Care Management Discharge Plan Reason for Hospitalization: hepatitis Discharge Plan: Rj will be discharged home with no new services when medically stable. They will follow up with their PCP and plan of care and transport with a friend. Patient/Family Education Needs: Review discharge instructions, limitations, follow up plan and discuss Ask Me Three
== END 2025-03-21 14:13 | disposition home or self-care (01) | DRG 443 ==
LOC: ER 21:17 → MS 22:20
PROVIDERS: Emergency Medicine; Admitting Provider Hospitalist; Emergency Provider Physician Assistant; PCP Family Medicine; Responsible Provider Nurse Practitioner Acute Care; Visit Provider Hospitalist
DX: K72.00 Acute and subacute hepatic failure without coma (principal); M79.7 Fibromyalgia; F31.9 Bipolar disorder, unspecified; G47.00 Insomnia, unspecified; Z79.890 Hormone replacement therapy; K21.9 Gastro-esophageal reflux disease without esophagitis; Z79.899 Other long term (current) drug therapy; R79.1 Abnormal coagulation profile; F64.0 Transsexualism; E80.6 Other disorders of bilirubin metabolism; K58.9 Irritable bowel syndrome, unspecified; K76.0 Fatty (change of) liver, not elsewhere classified
CPT/HCPCS: 00123; 36415; 71275; 74177; 80053; 80307; 81025; 82550; 83690; 86704; 86709; 86803; 87340; 93005; 96374; 96375; 99285; J1650; 74181; 76700; 80320; 80329; 81003; 82248; 82977; 83605; 83735; 84484; 85025; 85379; 85610; 93010; 93970; 99222; 99233; 99239; J0131; J0780; J1171; J1885; J2405; J2470; J3490